=== PATIENT | female | born 1930 | race Caucasian/White ===

== ENCOUNTER 2016-12-16 09:26 | Outpatient (CLI) | payer OTHER ==
--- NOTE | 2016-12-16 10:41 | DIAGNOSTIC IMAGING REPORT ---
PROCEDURE: DEXA BONE DENSITY STUDY CLINICAL INDICATION: OSTEOPOROSIS COMPARISON: None. FINDINGS: LUMBAR SPINE: Bone mineral density 1.003 g/cm2, T score -0.4 normal LEFT HIP: Bone mineral density 0.702 g/cm2, T score -2.0 osteopenia LEFT FEMORAL NECK: Bone mineral density 1.210 g/cm2, T score 3.3 osteoporosis FRACTURE RISK CALCULATION ( when applicable): 10-year fracture risk of a major osteoporotic fracture and of a hip fracture not reported because of a prior hip or vertebral fracture (T score greater or equal to -1.0 to: NORMAL) (T score from -1.1 to -2.4: OSTEOPENIA) (T score ess than or equal to -2.5: OSTEOPOROSIS) IMPRESSION: 1. Osteopenia left hip, osteoporosis left femoral neck
== END 2016-12-16 23:00 | disposition home or self-care (01) ==
LOC: XR SRH 09:26
DX: M85.80 Other specified disorders of bone density and structure, unspecified site (principal)